=== PATIENT | female | born 2000 | race Two or more races ===

== ENCOUNTER 2023-02-26 21:10 | Emergency (ER) | payer OTHER ==
[~2023-02-26] VITALS: Ht 165.1 cm; Wt 113.4 kg
[2023-02-26] MEDS ORDERED: TDAP [DIPH/PERTUSSIS/TET] 0.5 ML VIAL IM ONE ×2 (22:00→22:09)
[2023-02-26 23:51] LABS: PREGNANCY TEST URINE QUAL NEGATIVE (NEGATIVE)
[2023-02-27 06:41] VITALS: BP 132/78; TEMP 98; O2SAT 99
== END 2023-02-27 06:42 | disposition home or self-care (01) ==
LOC: ER 21:15
DX: S70.02XA Contusion of left hip, initial encounter (principal); S09.8XXA Other specified injuries of head, initial encounter; R10.2 Pelvic and perineal pain; Y04.8XXA Assault by other bodily force, initial encounter; Y93.89 Activity, other specified; Y92.89 Other specified places as the place of occurrence of the external cause; Y99.8 Other external cause status
CPT/HCPCS: 70450-TC; 70486-TC; 73502; 73552; 84703-TC; 90715